=== PATIENT | male | born 1970 | race African-American/Black ===

== ENCOUNTER 2020-11-09 11:42 | Inpatient (IN) | payer OTHER ==
[2020-11-09] MEDS ORDERED: LACTATED RINGERS SOLUTION 1000 ML INFUS.BAG IV STA (12:04)
[2020-11-09 12:40] LABS: VENOUS BASE EXCESS 2.7 mmol/L (-2-2); VENOUS O2 SATURATION 29.7 % (70-80); VENOUS PCO2 64.2 mmHg (38-52); VENOUS PH 7.304 (7.310-7.410)
[2020-11-09 12:42] LABS: BASO % 0.7 % (0-2.0); EOS % 5.7 % (0-4.5); HEMATOCRIT 43.5 % (35.4-49); HEMOGLOBIN 14.8 GM/dL (11.7-16.9); LYMPH % 44.6 % (8-40); MCH 29.9 pg (25.7-33.7); MEAN PLT VOLUME 11.8 fl (7.5-11.1); PLATELET COUNT 165 K/MM3 (134-434); RBC 4.94 M/mm3 (4.00-5.60); RDW 12.3 % (11.9-15.9); WHITE BLOOD COUNT 4.3 K/mm3 (4.0-10.0)
[2020-11-09 12:56] LABS: URINE APPEARANCE CLEAR; URINE BILIRUBIN NEGATIVE (NEGATIVE); URINE COLOR YELLOW; URINE GLUCOSE (UA) 3+ (NEGATIVE); URINE KETONE TRACE (NEGATIVE); URINE LEUK ESTERASE NEGATIVE (NEGATIVE); URINE NITRITE NEGATIVE (NEGATIVE); URINE PROTEIN NEGATIVE (NEGATIVE); URINE UROBILINOGEN 0.2 mg/dL (0.2-1.0)
[2020-11-09 13:07] LABS: CHLORIDE 94 mmol/L (98-107); POTASSIUM 4.6 mmol/L (3.5-5.1); SODIUM 131 mmol/L (136-145)
[2020-11-09 13:10] LABS: ALBUMIN 4.2 g/dl (3.4-5.0); ANION GAP 6 MMOL/L (8-16); BLOOD UREA NITROGEN 19.4 mg/dL (7-18); CO2 31 mmol/L (21-32); MAGNESIUM 2.4 mg/dL (1.8-2.4)
[2020-11-09 13:13] LABS: CREATININE 1.5 mg/dL (0.55-1.3); SGOT/AST 42 U/L (15-37); SGPT/ALT 74 U/L (13-61)
[2020-11-09 13:14] LABS: BILIRUBIN,TOTAL 0.8 mg/dL (0.2-1); TOT PROT 8.6 g/dl (6.4-8.2)
[2020-11-09 13:15] LABS: ALK PHOS 171 U/L (45-117)
[2020-11-09] MEDS ORDERED: SODIUM CHLORIDE 0.9% 500 ML INFUS.BAG IV ONE (13:24)
[2020-11-09 13:28] LABS: CALCIUM 10.2 mg/dL (8.5-10.1)
[2020-11-09 13:31] LABS: GLUCOSE,RANDOM 556 mg/dL (74-106)
[2020-11-09] MEDS ORDERED: INSULIN REGULAR HUMAN 100 UNITS/ML *VIAL IVPUSH ONE (13:49)
[2020-11-09] MEDS ORDERED: INSULIN REGULAR HUMAN 100 UNITS/ML *VIAL ONE (13:53)
[2020-11-09 14:18] LABS: LIPASE 245 U/L (73-393)
[2020-11-09 15:18] LABS: POTASSIUM 4.5 mmol/L (3.5-5.1)
[2020-11-09 15:19] LABS: CALCIUM 9.4 mg/dL (8.5-10.1)
[2020-11-09 15:20] LABS: BLOOD UREA NITROGEN 16.4 mg/dL (7-18)
[2020-11-09 15:23] LABS: CREATININE 1.2 mg/dL (0.55-1.3)
[2020-11-09] MEDS ORDERED: KCL 10 MEQ IVPB 10 MEQ/100 ML INFUS.BAG IVPB ONE (15:23)
[2020-11-09] MEDS ORDERED: ENOXAPARIN NA (PORCINE) 40 MG/0.4 ML DISP.SYRIN SQ ONE (15:24)
[2020-11-09] MEDS ORDERED: PANTOPRAZOLE SODIUM 40 MG/100 ML BAG IVPB ONE (15:25)
[2020-11-09] MEDS: POTASSIUM CHLORIDE 10 MEQ in SODIUM CHLORIDE 1,000 ML IVPB SCH ×2 (15:38→21:53)
[2020-11-09] MEDS: PANTOPRAZOLE SODIUM 40 MG VIAL IVPUSH SCH (15:38)
[2020-11-09] MEDS: ENOXAPARIN NA (PORCINE) 40 MG/0.4 ML DISP.SYRIN SQ SCH (15:38)
[2020-11-09] MEDS: POLYETHYLENE GLYCOL 3350 119 GM BTL PO SCH (16:07)
[2020-11-09 17:10] LABS: MAGNESIUM 2.1 mg/dL (1.8-2.4)
[2020-11-09 17:14] LABS: PHOSPHOROUS 3.3 mg/dL (2.5-4.9)
[2020-11-09] MEDS: INSULIN SLIDING SCALE (NOVOLOG) 1 VIAL SQ SCH (17:57)
[2020-11-09 20:19] VITALS: BMI 25.4
[2020-11-09] MEDS: DOCUSATE SODIUM 100 MG CAPSULE (FP) PO SCH (21:04)
[2020-11-10] MEDS: INSULIN SLIDING SCALE (NOVOLOG) 1 VIAL SQ SCH ×4 (06:07→21:46)
[2020-11-10] MEDS: POTASSIUM CHLORIDE 10 MEQ in SODIUM CHLORIDE 1,000 ML IVPB SCH ×3 (06:46→19:50)
[2020-11-10 08:12] LABS: POTASSIUM 4.3 mmol/L (3.5-5.1)
[2020-11-10 08:19] LABS: BLOOD UREA NITROGEN 15.3 mg/dL (7-18)
[2020-11-10 08:22] LABS: CREATININE 1.4 mg/dL (0.55-1.3)
[2020-11-10 08:23] LABS: BILIRUBIN,TOTAL 0.8 mg/dL (0.2-1)
[2020-11-10 08:26] LABS: ALBUMIN 3.3 g/dl (3.4-5.0)
[2020-11-10 08:55] LABS: BASO % 0.5 % (0-2.0); EOS % 6.1 % (0-4.5); HEMATOCRIT 39.6 % (35.4-49); HEMOGLOBIN 13.4 GM/dL (11.7-16.9); LYMPH % 42.5 % (8-40); MCH 30.3 pg (25.7-33.7); MCHC 33.9 g/dl (32.0-35.9); MEAN CELL VOLUME 89.5 fl (80-96); MEAN PLT VOLUME 12.1 fl (7.5-11.1); NEUT % 43.9 % (42.8-82.8); PLATELET COUNT 149 K/MM3 (134-434); RBC 4.42 M/mm3 (4.00-5.60); RDW 12.7 % (11.9-15.9); WHITE BLOOD COUNT 4.1 K/mm3 (4.0-10.0)
[2020-11-10] MEDS ORDERED: PNEUMOCOCCAL 23 VACCINE 0.5 ML VIAL IM ONE (10:00)
[2020-11-10] MEDS ORDERED: PNEUMOC 13-VAL CONJ-DIP CRM/PF 0.5 ML DISP.SYRIN IM ONE (10:00)
[2020-11-10] MEDS: DOCUSATE SODIUM 100 MG CAPSULE (FP) PO SCH ×3 (11:26→21:15)
[2020-11-10] MEDS: POLYETHYLENE GLYCOL 3350 119 GM BTL PO SCH ×2 (11:26→21:15)
[2020-11-10] MEDS: PANTOPRAZOLE SODIUM 40 MG VIAL IVPUSH SCH (11:26)
[2020-11-10] MEDS: ENOXAPARIN NA (PORCINE) 40 MG/0.4 ML DISP.SYRIN SQ SCH (11:26)
[2020-11-10] MEDS ORDERED: INSULIN (NOVOLOG) ASPART 100 UNITS/ML 10ML VIAL ONE (12:07)
[2020-11-10] MEDS ORDERED: INSULIN (NOVOLOG MIX 70/30) 100 UNITS/ML MDV SQ SCH ×2 (16:30)
[2020-11-10] MEDS ORDERED: INSULIN SLIDING SCALE (NOVOLOG) 1 VIAL SQ SCH (16:32)
[2020-11-10] MEDS ORDERED: INSULIN (LEVEMIR) 100 UNITS/ML UNITS SQ SCH (22:00)
[2020-11-11] MEDS: DOCUSATE SODIUM 100 MG CAPSULE (FP) PO SCH ×3 (05:55→22:16)
[2020-11-11] MEDS: INSULIN SLIDING SCALE (NOVOLOG) 1 VIAL SQ SCH ×4 (06:00→22:16)
[2020-11-11] MEDS: POTASSIUM CHLORIDE 10 MEQ in SODIUM CHLORIDE 1,000 ML IVPB SCH ×2 (06:44→19:33)
[2020-11-11] MEDS: INSULIN (NOVOLOG MIX 70/30) 100 UNITS/ML MDV SQ SCH ×2 (06:46→16:41)
[2020-11-11 09:00] LABS: POTASSIUM 3.7 mmol/L (3.5-5.1)
[2020-11-11 09:04] LABS: BLOOD UREA NITROGEN 15.5 mg/dL (7-18); CALCIUM 8.2 mg/dL (8.5-10.1)
[2020-11-11 09:08] LABS: CREATININE 0.8 mg/dL (0.55-1.3)
[2020-11-11] MEDS ORDERED: PT OWN MED DRAWER 7, Y5N ONE (09:40)
[2020-11-11] MEDS: POLYETHYLENE GLYCOL 3350 119 GM BTL PO SCH ×2 (09:43→22:17)
[2020-11-11] MEDS: PANTOPRAZOLE SODIUM 40 MG VIAL IVPUSH SCH (09:44)
[2020-11-11] MEDS: ENOXAPARIN NA (PORCINE) 40 MG/0.4 ML DISP.SYRIN SQ SCH (09:46)
[2020-11-11] MEDS: INSULIN (LEVEMIR) 100 UNITS/ML UNITS SQ SCH ×2 (11:28→22:18)
[2020-11-12] MEDS: DOCUSATE SODIUM 100 MG CAPSULE (FP) PO SCH ×2 (05:42→13:37)
[2020-11-12] MEDS: INSULIN SLIDING SCALE (NOVOLOG) 1 VIAL SQ SCH ×2 (06:21→12:18)
[2020-11-12] MEDS: INSULIN (NOVOLOG MIX 70/30) 100 UNITS/ML MDV SQ SCH ×2 (06:21→07:17)
[2020-11-12] MEDS: INSULIN (LEVEMIR) 100 UNITS/ML UNITS SQ SCH (06:58)
[2020-11-12 09:23] LABS: BLOOD UREA NITROGEN 12.8 mg/dL (7-18)
[2020-11-12 09:26] LABS: CALCIUM 8.4 mg/dL (8.5-10.1)
[2020-11-12] MEDS: ENOXAPARIN NA (PORCINE) 40 MG/0.4 ML DISP.SYRIN SQ SCH (10:24)
[2020-11-12] MEDS: PANTOPRAZOLE SODIUM 40 MG VIAL IVPUSH SCH (10:25)
[2020-11-12] MEDS: POLYETHYLENE GLYCOL 3350 119 GM BTL PO SCH (10:26)
[2020-11-12 14:55] VITALS: BP 130/92; PULSE 79; TEMP 98.4
== END 2020-11-12 15:40 | disposition home or self-care (01) | DRG 638 ==
LOC: JER 11:42 → JERBED 14:20 → J8W 19:08
PROVIDERS: ADMIT Internal Medicine; ATTEND Internal Medicine
DX: E11.65 Type 2 diabetes mellitus with hyperglycemia (principal); N17.9 Acute kidney failure, unspecified; E87.1 Hypo-osmolality and hyponatremia; R63.1 Polydipsia; R35.8 Other polyuria; E86.0 Dehydration; R10.13 Epigastric pain; K59.00 Constipation, unspecified; R74.01 Elevation of levels of liver transaminase levels; R78.89 Finding of other specified substances, not normally found in blood; M62.81 Muscle weakness (generalized)
CPT/HCPCS: 36415; 71045-TC-FY; 80048; 80053; 81003; 82010; 82550; 82553; 82803; 82962; 83036; 83605; 83690; 83735; 84100; 84484; 85025; 87804; 90732; 93005; 93010; 97116-GP; 97161-GP; 99285-25; C9803; G0009; U0003